=== PATIENT | male | born 1950 | race Caucasian/White ===

== ENCOUNTER 2018-10-26 04:06 | Inpatient (IN) | payer MEDICARE, OTHER ==
[~2018-10-26] VITALS: Ht 177.8 cm; Wt 98.0 kg
[2018-10-28 06:38] VITALS: BP 128/69
== END 2018-10-28 13:20 | disposition home or self-care (01) | DRG 440 ==
LOC: ED 06:46 → EDIP 06:47 → 3NE 06:56 → DCLOUNGE 10-28 13:18
PROVIDERS: ADMIT Internal Medicine; ATTEND Internal Medicine
DX: K85.00 Idiopathic acute pancreatitis without necrosis or infection (principal); N20.0 Calculus of kidney; E66.9 Obesity, unspecified; I10 Essential (primary) hypertension; G89.29 Other chronic pain; Z88.5 Allergy status to narcotic agent; Z68.31 Body mass index [BMI] 31.0-31.9, adult
CPT/HCPCS: 36415; 74177; 76705; 80048; 80053; 80061; 81001; 83690; 85025; 93005; 96374; G0378; J2405; J3411; J3475; J3480; J7042; Q9967; J2270; J7030

== ENCOUNTER 2018-10-29 00:43 | Inpatient (IN) | payer MEDICARE ==
[~2018-10-29] VITALS: Ht 177.8 cm; Wt 100.0 kg
[2018-10-31 08:03] VITALS: BP 175/86
== END 2018-10-31 12:54 | disposition home or self-care (01) | DRG 853 ==
LOC: OR 04:02 → EDIP 04:06 → 4NOR 07:23 → DCLOUNGE 10-31 12:45
PROVIDERS: ADMIT Internal Medicine; ATTEND Internal Medicine
PROC: 0DU947Z Supplement Duodenum with Autologous Tissue Substitute, Percutaneous Endoscopic Approach (ICD-10-PCS; principal; 2018-10-29)
DX: A41.9 Sepsis, unspecified organism (principal); K65.0 Generalized (acute) peritonitis; K26.5 Chronic or unspecified duodenal ulcer with perforation; E44.0 Moderate protein-calorie malnutrition; E66.9 Obesity, unspecified; Z68.31 Body mass index [BMI] 31.0-31.9, adult; E83.42 Hypomagnesemia; E87.6 Hypokalemia; G89.29 Other chronic pain; I10 Essential (primary) hypertension; R09.02 Hypoxemia; T39.315A Adverse effect of propionic acid derivatives, initial encounter; Z87.442 Personal history of urinary calculi; Z88.5 Allergy status to narcotic agent; M54.9 Dorsalgia, unspecified; K66.8 Other specified disorders of peritoneum
CPT/HCPCS: 36415; 71045; 71275; 74177; 80053; 80061; 81001; 83036; 83605; 83690; 83735; 84100; 84439; 84443; 84484; 85025; 87040; 87086; 93005; 96374; 99285; G0378; J0696; J1650; J2250; J2543; J2704; J3010; Q9967; C9113; J0330; J2270; J3475; J7030